=== PATIENT | female | born 1975 | race Caucasian/White ===

== ENCOUNTER 2016-09-29 08:59 | Day surgery (SDC) | payer OTHER ==
[~2016-09-29] VITALS: Ht 174.6 cm; Wt 92.9 kg
[2016-09-29] VITALS (9 sets, daily range): BP systolic 108–124; BP diastolic 55–68; PULSE 40–85; RESP 12–17; O2SAT 94–100
[~2016-09-29 08:59] MED LIST: LEVA15HF5 IH; LEVO1TAB18 PO; METH750T3 PO; NORT10CA PO; OLP.1OP5 OD; PROM25TA14 PO; SUMA100T2 PO
[2016-09-29] MEDS ORDERED: Dexamethasone 4 mg/mL Inj ONE (09:00)
[2016-09-29] MEDS ORDERED: Ondansetron 2 mg/mL 2 mL Inj ONE (09:00)
[2016-09-29] MEDS ORDERED: Rocuronium 10 mg/mL 5 mL Inj ONE (09:00)
[2016-09-29] MEDS ORDERED: fentaNYL-PF 50 mCg/mL 2 mL Inj ONE (09:00)
[2016-09-29] MEDS ORDERED: Glycopyrrolate 0.2 mg/mL 5 mL Inj ONE (09:00)
[2016-09-29] MEDS ORDERED: MetoCLOpramide 5 mg/mL 2 mL Inj ONE (09:00)
[2016-09-29] MEDS ORDERED: Neostigmine 1 mg/mL 5 mL Inj ONE (09:00)
[2016-09-29] MEDS ORDERED: Propofol 10,000 mCg/mL 20 mL Inj ONE (09:00)
[2016-09-29] MEDS: Lactated Ringer's 1,000 ML IV SCH ×2 (09:12→13:50)
[2016-09-29] MEDS ORDERED: Lactated Ringer's 500 ML IV PRN (14:04)
[2016-09-29] MEDS ORDERED: Lactated Ringer's 1,000 ML IV SCH (14:04)
--- NOTE | 2016-09-29 14:04 | PCM.HPANE ---
Patient Data Surgeon Admitting Provider: Attending Provider:Gurmeet Paiz MD Primary Care Physician:Franca Mac MD Other Provider:[facility] Anesthesia Reason for Visit Family Planning Ht/WT & BMI Height (Feet): 5 Height (Inches): 8 Weight (Kilograms): 30.94 Body Mass Index 10.00 Allergies Coded Allergies: amoxicillin (Verified Allergy, Severe, HEADACHE, 09/29/16) doxycycline (Verified Allergy, Severe, ASTHMA ATTACK, 09/27/16) penicillin G (Verified Allergy, Intermediate, HEADACH/ NAUSEA, 09/27/16) Past Anesthesia History Anesthesia History: Denies:: Anesthesia Reactions, Fam Anesthesia Reaction, Fam Malignant Hypertherm, Malignant Hyperthermia Diabetes History Hx Diabetes?: No MRSA MRSA: No Medications Reported Medications Methocarbamol 750 Mg [id number] Mg PO QID PRN For Spasm Ref 0 09/27/16 Nortriptyline 10 Mg [id number] Mg PO HS 09/27/16 Olopatadine (Patanol)5 Ml Soln5 Ml OD BID 09/27/16 Levalbuterol Tartrate (Xopenex Hfa)15 Gm Hfa.aer.ad1 Puff IH Q4 PRN For Wheezing #1 INH 09/27/16 Levonorgestrel/Ethinyl Estradiol (Trivora-28)1 Each Tablet1 Tablet PO DAILY #1 PACK 09/27/16 Sumatriptan Succinate 100 Mg [id number] Mg PO 09/27/16 Promethazine 25 Mg Tieckp45 Mg PO Q6H PRN For Nausea Ref 0 09/27/16 History History of ENT Problems?: No Hx of Heart Problems?: Yes Other Cardiac History: ORTHOSTASIS WITH SYNCOPLE EPISODES Hx of Respiratory Problem?: Yes Respiratory History: Positive for:: Asthma Use of Inhalers / NEBS (BOTH) Hx Neurologic Problems?: Yes Neurological History: Positive for:: Dizziness (SYNCOPE WELL) Hx of GI Problems?: No Hx of Problems?: No Female Hx: Denies:: Currently Skin History: Denies:: History Skin Disorders? Pressure Ulcers Hx Musculoskeletal Problems?: Yes Musculoskeletal History: Positive for:: Musculoskeletal Trauma (CHRONIC BILATER SHOULDER PAIN) Hx of Psycho/Social Problems?: No Hx Surgeries?: Yes (knee, ankle both right side) Hx Any Other Health Problems?: No Other History: Denies:: Cancer History Blood Transfusions: Positive for:: Accept Blood Products? Denies:: Blood Transfusions Hx Diabetes: No Hx Alcohol Use: No (weekly)Hx Substance Use: No Stop/Bang S-Snoring: Do You Snore Loudly: No T-Tired: feel tired, fatigued: No O-Obsered: Observed not breath: No P-Blood Pressure: treated: No B- Body Mass Index > 35 kg/m2: No A- Age over 50: No N- Neck Large Circumference: No G- Gender Male: No GABBY Total Score: 0 Risk Assessment Category Category 1A: Patient has history of documented sleep apnea, and HAS NOT received any narcotic, sedative or anesthesia administration during this stay. Category 1B: Patient has history of documented sleep apnea, and HAS received any narcotic , sedative or anesthesia administration during this stay Category 2: Patient has SUSPECTED Obstructive Sleep Apnea, and HAS received any narcotic , sedative or anesthesia administration during this stay. Category 3: Patient has SUSPECTED Obstructive Sleep Apnea and HAS NOT received narcotic, sedative or anesthesia administration during this stay. Category 4: Outpatient in Procedural Areas with known sleep apnea or who screen positive for High Risk via the STOP/BANG questionnaire. Exam Exam General Appearance: Alert, Oriented X3, Cooperative, No Acute Distress HEENT/AIRWAY: MP 2 Lungs: Clear to Auscultation Heart: Exam Unremarkable Plan Impression Patient chart reviewed, patient interviewed and anesthestic plan with risks, benefits, and alternatives discussed, and informed consent obtained. ASA Physical Status: ASA2 Mod Systemic Disease Anesthetic Plan: GA Bene/Risks/Altern/Consents: Yes HP Complete Prior to Induction: Yes Andi Walton MD Sep 29, 2016 07:51
[2016-09-29] MEDS ORDERED: HYDROmorphone 1 mg/mL Inj IVPUSH PRN (14:05)
[2016-09-29] MEDS ORDERED: MetoCLOpramide 5 mg/mL 2 mL Inj IVPUSH PRN ×2 (14:05→14:55)
[2016-09-29] MEDS ORDERED: EPHEDrine Sulfate 50 mg/mL Inj IVPUSH PRN (14:05)
[2016-09-29] MEDS ORDERED: Ondansetron 2 mg/mL 2 mL Inj IVPUSH PRN (14:05)
[2016-09-29] MEDS ORDERED: Phenylephrine 10,000 mCg/mL Inj IVPUSH PRN (14:05)
[2016-09-29] MEDS ORDERED: Dexamethasone 4 mg/mL Inj IVPUSH PRN (14:05)
[2016-09-29] MEDS ORDERED: fentaNYL-PF 50 mCg/mL 2 mL Inj IVPUSH PRN (14:05)
[2016-09-29] MEDS ORDERED: Bupivacaine-MPF 0.5% W/EPI 30 mL Inj INFILTRATE ONE (14:19)
[2016-09-29] MEDS ORDERED: diphenhydrAMINE 25 mg Capsule PO PRN (14:55)
[2016-09-29] MEDS ORDERED: oxyCODONE-Acetamin 5-325 mg Tablet PO PRN (14:55)
--- NOTE | 2016-09-29 14:58 | PCM.DIMED ---
Discharge Instructions Date of Service Sep 29, 2016 Dates of Hospitalization Diet No restrictions Activity No restrictions Call your provider Fever or Chills, Shortness of breath, Bleeding, Chest pain, Vomitting, Excessive diarrhea, Weakness (unilateral) Patient Instructions Follow-up with PCP in: 2 weeks Gurmeet Paiz MD Sep 29, 2016 14:58
--- NOTE | 2016-09-29 15:10 | PCM.ANEP2 ---
Post Anesthesia Evaluation ASA/CMS Post Anesthesia VS in Patient's Normal Range?: Yes Resp Stable; Airway Patent?: Yes CV Function & Hydration Stable: Yes Mental Status Recovered?: Yes Pain control Satisfactory?: Yes N/V Control Satisfactory?: Yes Andi Walton MD Sep 29, 2016 15:10
--- NOTE | 2016-09-29 15:10 | PCM.ANEP1 ---
Post Anesthesia Phase 1 PACU Phase 1 Assessment Vital Signs Vital Signs Date Time Temp Pulse Resp B/P Pulse Ox O2 Delivery O2 Flow Rate FiO2 09/29/16 15:05 65 12 110/62 98 Room Air 09/29/16 15:00 64 14 118/66 99 Room Air 09/29/16 14:55 62 13 119/68 98 Room Air 09/29/16 14:50 35.9 40 14 109/63 98 Room Air 09/29/16 09:22 36.0 85 17 124/61 97 Room Air Anesthetic Administered: GA Level of Alertness: Awake, talking RAMIREZ's with Equal Strength: Yes Pain: Yes Nausea or Vomiting: No Oxygen Delivery: Room Air Lungs: Clear to Auscultation Dermatome Level: Full Sensation Andi Walton MD Sep 29, 2016 15:09
--- NOTE | 2016-09-29 15:36 | OP ---
[address] [address] OPERATIVE REPORT PATIENT: KURT MONET : 1975 MR#: [id number] ADMIT: 09/29/2016 JOB ID: [id number] DATE OF SURGERY: 09/29/2016 PROCEDURE: Bilateral tubal ligation. PREOPERATIVE DIAGNOSIS(ES): Desires sterilization. POSTOPERATIVE DIAGNOSIS(ES): Desires sterilization. SURGEON: Gurmeet Paiz MD WEAPONS MECHANIC: None. ANESTHESIA: Andi Walton MD, general. ESTIMATED BLOOD LOSS: 5 mL. ESTIMATED URINE OUTPUT: 50 mL. ESTIMATED FLUIDS: 600 mL of lactated Ringer. COMPLICATIONS: None. FINDINGS: Normal appearance of the perineum, vagina and cervix. The uterus is normal in size, ovaries normal in size. Neck is unremarkable. PROCEDURE: The patient was brought to the operating room, where she underwent general anesthesia without difficulty. The patient was placed in the dorsal lithotomy position using Anup stirrups. She was prepped and draped in the usual surgical fashion. Next, a speculum was placed in the vagina. The cervix was visualized and a Hulka uterine manipulator was placed. The Graves speculum was removed. Attention was directed to the patient's abdomen where a Veress needle was introduced through the umbilicus and CO2 gas was insufflated with appropriate pneumoperitoneum achieved. A 5 mm subumbilical skin incision was made with a scalpel and a 5 mm trocar was placed through the incision. The pelvis was reviewed with the findings mentioned above. One additional 5 mm incision was made in the patient's left lower quadrant 5 mm superiorly and medially with anterior superior iliac spine. A 5 mm trocar was placed through the incision. Serial images were obtained through the procedure. When the uterus was elevated with a Hulka manipulator using LigaSure instrument, the patient's left fallopian tube was identified, ligated and transected in three separate places. A small segment of the tube was adhesed to the instrument and there was little difficulty of removing it. It was removed from the abdomen and sent to Pathology. Attention was directed to the contralateral right side where the right fallopian tube was identified, tented up, and ligated and transected in three different places 1 cm apart, 3 cm away from the right cornua of the uterus. Good hemostasis was achieved. CO2 gas was desufflated from the abdomen. All the instruments and trocars were removed. The skin incisions were reapproximated using 4-0 Monocryl. Dermabond glue was applied. Hemostatic dressings were applied. At the end of the procedure, Hulka uterine manipulator was removed from the vagina, hemostasis of the area of the cervix was reassured. The patient was repositioned back into the supine position. She tolerated the procedure well and was transferred to the recovery room in stable condition.
--- NOTE | 2016-10-03 11:56 | PATH ---
SURGICAL PATHOLOGY Attending Physician:Gurmeet Paiz MD CASE STATUS: Signed Out PATIENT NAME: KURT MONET PID: [id number] : 1975 DATE COLLECTED:09/29/2016 22:27 SPECIMEN: Fallopian Tube, Sterilization CLINICAL HISTORY: FAMILY PLANNING BILATERAL TUBAL LIGATION LEFT FALLOPIAN TUBE SEGMENT FINAL DIAGNOSIS: Segment of Left Fallopian Tube (Sterilization Procedure): No significant pathologic change. ICD10 Z30.2 GROSS DESCRIPTION: The specimen is received in one formalin filled container labeled with the patient's name, sublabeled "left fallopian tube segment" and consists of a 1.6 x 0.7 x 0.5 CM goode-jarquin partial cylinder-shaped portion of tissue. The specimen is inked sectioned into 4 pieces and entirely submitted in one cassette. 09/30/2016 [facility] ICD-9 CODES: CPT CODES: 1: 75483 Electronically Signed Out Ernst Keene MD [facility] Pathology [facility] [address] [place] [address] Technical component performed at [facility], [facility] [address], [address]
== END 2016-09-29 23:59 | disposition home or self-care (01) ==
LOC: SAS 08:59
PROVIDERS: ATTEND Legal Medicine
PROC: 0U574ZZ Destruction of Bilateral Fallopian Tubes, Percutaneous Endoscopic Approach (ICD-10-PCS; principal; 2016-09-29 11:00)
DX: Z30.2 Encounter for sterilization (principal); J45.909 Unspecified asthma, uncomplicated; M54.2 Cervicalgia; D75.89 Other specified diseases of blood and blood-forming organs
CPT/HCPCS: 58670; J1100; J1170; J2405; J2710; J2765; J7120